=== PATIENT | male | born 1990 | race Caucasian/White ===

== ENCOUNTER 2017-11-11 19:58 | Emergency (ER) | payer BC ==
[2017-11-11] MEDS ORDERED: Famotidine 20 MG Tab PO ONE (22:14)
--- NOTE | 2017-11-11 22:17 | EDM.PDOC ---
ED HPI GENERAL MEDICAL PROBLEM - General Chief Complaint: Abdominal Pain Stated Complaint: STOMACH PAIN Time Seen by Provider: 11/11/17 20:22 Source of Information: Reports: Patient, RN Notes Reviewed - History of Present Illness INITIAL COMMENTS - FREE TEXT/NARRATIVE: 27 year old male with upper abd discomfort, intermetent over the past month or so and again for much of today, upper abd ach, mild burning type discomfort. No nausea or vomiting. has had several episodes of some bright blood in the stool also the past month or so, has some concern about that. Has had more fatigue than usual the past several wks. Abdomen Pain Score (Numeric/FACES): 4 - Related Data Allergies Allergy/AdvReac Type Severity Reaction Status Date / Time No Known Allergies Allergy Verified 11/11/17 20:16 Home Meds: Home Meds Omeprazole 20 mg PO DAILY #20 cap.sr 11/11/17 [Rx] Past Medical History - Past Health History Medical/Surgical History: Denies Medical/Surgical History Social & Family History - Tobacco Use Smoking Status *Q: Never Smoker - Caffeine Use Caffeine Use: Reports: Coffee - Recreational Drug Use Recreational Drug Use: No ED ROS GENERAL - Review of Systems Review Of Systems: See Below Constitutional: Denies: Fever, Chills HEENT: Denies: Sinus Problem, Throat Pain Respiratory: Denies: Shortness of Breath Cardiovascular: Denies: Chest Pain GI/Abdominal: Reports: Abdominal Pain, Hematochezia. Denies: Black Stool, Melena Musculoskeletal: Reports: No Symptoms Skin: Reports: No Symptoms Neurological: Reports: No Symptoms ED EXAM, GI/ABD - Physical Exam Exam: See Below General Appearance: Alert, No Apparent Distress Eyes: Bilateral: Normal Appearance Throat/Mouth: Normal Inspection, Normal Oropharynx Head: Atraumatic. No: Facial Swelling Neck: Supple, Full Range of Motion Respiratory/Chest: No Respiratory Distress, Lungs Clear, Normal Breath Sounds Cardiovascular: Regular Rate, Rhythm GI/Abdominal Exam: Soft, Non-Tender Rectal (Males) Exam: Other (patient declined to have rectal done) Back Exam: Normal Inspection Extremities: Normal Inspection, Normal Range of Motion. No: Pedal Edema, Leg Pain Neurological: Alert, Oriented, No Motor/Sensory Deficits Course - Vital Signs Last Recorded V/S: Last Vital Signs Temp 99.1 F 11/11/17 20:10 Pulse 115 H 11/11/17 20:10 Resp 18 11/11/17 20:10 BP 148/84 H 11/11/17 20:10 Pulse Ox 97 11/11/17 20:10 - Orders/Labs/Meds Labs: Laboratory Tests 11/11/17 11/11/17 Range/Units 20:55 20:55 WBC 13.90 H (4.23-9.07) K/mm3 RBC 5.39 (4.63-6.08) M/mm3 Hgb 15.4 (13.7-17.5) gm/L Hct 45.5 (40.1-51.0) % MCV 84.4 (79.0-92.2) fl MCH 28.6 (25.7-32.2) pg MCHC 33.8 (32.2-35.5) g/dl RDW Std Deviation 43.5 (35.1-43.9) fL Plt Count 250 (163-337) K/mm3 MPV 10.0 (9.4-12.3) fl Neut % (Auto) 75.1 H (34.0-67.9) % Lymph % (Auto) 13.6 L (21.8-53.1) % [place] % (Auto) 10.6 (5.3-12.2) % Eos % (Auto) 0.4 L (0.8-7.0) Baso % (Auto) 0.1 (0.1-1.2) % Neut # (Auto) 10.43 H (1.78-5.38) K/mm3 Lymph # (Auto) 1.89 (1.32-3.57) K/mm3 [place] # (Auto) 1.47 H (0.30-0.82) K/mm3 Eos # (Auto) 0.06 (0.04-0.54) K/mm3 Baso # (Auto) 0.02 (0.01-0.08) K/mm3 Sodium 136 (136-145) mEq/L Potassium 3.4 L (3.5-5.1) mEq/L Chloride 101 (98-107) mEq/L Carbon Dioxide 27 (21-32) mEq/L Anion Gap 11.4 (5-15) BUN 13 (7-18) mg/dL Creatinine 1.2 (0.7-1.3) mg/dL Est Cr Clr Drug Dosing 108.46 mL/min Estimated GFR (MDRD) > 60 (>60) mL/min BUN/Creatinine Ratio 10.8 L (14-18) Glucose 114 H (74-106) mg/dL Calcium 9.0 (8.5-10.1) mg/dL Total Bilirubin 0.9 (0.2-1.0) mg/dL AST 24 (15-37) U/L ALT 65 H (16-63) U/L Alkaline Phosphatase 55 (46-116) U/L Total Protein 7.1 (6.4-8.2) g/dl Albumin 3.9 (3.4-5.0) g/dl Globulin 3.2 gm/dL Albumin/Globulin Ratio 1.2 (1-2) Meds: Medications Discontinued Medications Generic Name Dose Route Start Last Admin Trade Name Freq PRN Reason Stop Dose Admin Famotidine 20 mg 11/11/17 22:14 Pepcid PO 11/11/17 22:15 ONETIME ONE - Re-Assessments/Exams Free Text/Narrative Re-Assessment/Exam: 11/12/17 14:05 CBC is good, K+ very mildly low at 3.4. Departure - Departure Time of Disposition: 22:14 Disposition: Home, Self-Care 01 Condition: Fair Clinical Impression: Hypokalemia Gastritis Qualifiers: Gastritis type: unspecified gastritis Chronicity: acute Gastritis bleeding: without bleeding Qualified Code(s): K29.00 - Acute gastritis without bleeding - Discharge Information Prescriptions: Omeprazole 20 mg PO DAILY #20 cap.sr Instructions: Gastritis, Adult, [id number], Hypokalemia Referrals: PCP,None [Primary Care Provider] - Forms: ED Department Discharge Additional Instructions: omeprazole 20 mg daily for 3 wks to reduce acid of your stomach, you potassium was low at 3.4. Eat plenty of bananas, other fruit and vegetables to help bring that up, try exercise at least 4 to 5 times a week, follow up clinic as needed.
== END 2017-11-11 22:22 | disposition home or self-care (01) ==
LOC: JD.ED 19:58
DX: K29.00 Acute gastritis without bleeding (principal); E87.6 Hypokalemia; Z79.899 Other long term (current) drug therapy
CPT/HCPCS: 36415; 80053; 85025; 99284

== ENCOUNTER 2021-07-22 09:41 | Emergency (ER) | payer BC ==
[2021-07-22] MEDS ORDERED: Sodium Chloride 0.9% 10 ML Syringe FLUSH PRN (10:19)
== END 2021-07-22 12:12 | disposition home or self-care (01) ==
LOC: JD.ED 09:41
DX: B02.9 Zoster without complications (principal); R00.0 Tachycardia, unspecified
CPT/HCPCS: 36415; 71045; 71045-26; 80053; 84484; 85025; 85379; 93005; 93010; 99285; 99285-25

== ENCOUNTER 2021-12-05 12:07 | Emergency (ER) | payer BC ==
[2021-12-05 13:15] LABS: ESTIMATED GFR > 60 mL/min (>60)
== END 2021-12-05 14:55 | disposition home or self-care (01) ==
LOC: JD.ED 12:07
DX: R53.83 Other fatigue (principal); Z79.899 Other long term (current) drug therapy; Z20.822 Contact with and (suspected) exposure to COVID-19
CPT/HCPCS: 36415; 80053; 83735; 84443; 84484; 85025; 93005; 93010; 99282; 99283-25; U0002